=== PATIENT | female | born 1965 | race Caucasian/White ===

== ENCOUNTER 2016-05-22 06:13 | Emergency (ER) | payer OTHER ==
--- NOTE | 2016-05-22 07:32 | RAD ---
Exam: Two-view chest COMPARISON: 07/15/2011 INDICATION: Cough and fever for 6 days. FINDINGS: PA and lateral views of the chest were obtained. Cardiac silhouette is within normal limits and stable. Lungs are well-inflated. There is no focal airspace disease or pleural effusion. Mild degenerative changes are seen within the mid to lower thoracic spine. Surgical clips are again noted within the right upper quadrant. IMPRESSION: No radiographic evidence of pneumonia.
== END 2016-05-22 07:49 | disposition home or self-care (01) ==
LOC: ED 06:13
DX: R05 Cough (principal)